=== PATIENT | male | born 1960 | race Two or more races ===

== ENCOUNTER 2024-10-22 11:51 | Emergency (ER) | payer OTHER ==
[~2024-10-22] VITALS: Ht 175.3 cm; Wt 83.0 kg
[2024-10-22] MEDS ORDERED: PLAVIX75 MG PO (12:02)
[2024-10-22] MEDS ORDERED: CHILDREN'S ASPI81 MG PO (12:02)
[2024-10-22] MEDS ORDERED: ZESTRIL10 M1 (12:03)
[2024-10-22] MEDS ORDERED: LIPITOR40 M1 PO (12:03)
[2024-10-22] MEDS ORDERED: LASIX20 MG (12:03)
[2024-10-22 13:25] LABS: HEMATOCRIT 37.8 % (39.0-48.0); HEMOGLOBIN 12.3 g/dL (13-16.00); MEAN CELL VOLUME 88.4 fL (80.0-100.00); MEAN CORPUSCULAR HEMOGLOBIN 28.8 pg (27.00-32.0); MEAN CORPUSCULAR HGB CONC 32.6 g/dl (32.0-36.0); PLATELET COUNT 140 K/uL (150-450); RED BLOOD COUNT 4.28 M/uL (4.00-6.00); RED CELL DISTRIBUTION WIDTH 14.2 % (11.5-14.5)
[2024-10-22 13:48] LABS: ALBUMIN 3.3 gm/dL (3.4-5.0); BILIRUBIN TOTAL 0.5 mg/dL (0.3-1.2); CALCIUM 9.9 mg/dL (8.5-10.1); CREATININE SERUM 0.62 mg/dL (0.70-1.30); GFR 131.02; GLOBULINA 4.3 G/DL (2.4-3.5); POTASSIUM 4.04 mEq/L (3.5-5.1); TOTAL PROTEIN 7.6 gm/dL (6.4-8.2)
[2024-10-22 14:28] LABS: URINE APPEARANCE Clear; URINE BILIRRUBIN Negative (NEGATIVE); URINE BLOOD Negative; URINE COLOR Yellow; URINE GLUCOSE Negative (NEGATIVE); URINE KETONE Negative (NEGATIVE); URINE LEUKOCYTE Negative; URINE NITRATE Negative; URINE PROTEIN Negative (NEGATIVE)
[2024-10-22 14:31] LABS: INR 1.08; PARTIAL THROMBOPLASTIN TIME 30.1 SECONDS (22.0-34.0); PROTHROMBIN TIME 11.7 SECONDS (9.0-11.5)
[2024-10-22 14:32] LABS: URINE EPITHELIAL CELLS 1.4 uL (0.0-38.8); URINE RBC 7.8 uL (0.0-20.8); URINE WBC 6.3 uL (0.0-23.2)
[2024-10-22 14:39] LABS: URINE BACTERIA 2.4 uL (0.0-1933)
[2024-10-22 14:47] LABS: COCAINE NEGATIVE (NEGATIVE); METHADONE NEGATIVE (NEGATIVE); OPIATES POSITIVE (NEGATIVE); THC ( Cannabinoids) NEGATIVE (NEGATIVE)
== END 2024-10-22 16:58 | disposition home or self-care (01) ==
LOC: ER 11:51
PROVIDERS: General Practice
DX: R53.81 Other malaise (principal); R29.898 Other symptoms and signs involving the musculoskeletal system; I10 Essential (primary) hypertension
CPT/HCPCS: 36415; 70460; 71046; 72125; 73100; 93005; Q9965